=== PATIENT | male | born 1990 | race Native Hawaiian/Other Pacific Islander ===

== ENCOUNTER 2016-06-08 16:09 | Inpatient (IN) | payer BC ==
[~2016-06-08] VITALS: Ht 170.2 cm; Wt 75.3 kg
[2016-06-08 17:35] LABS: PLATELET COUNT 251 K/uL (142-355)
[2016-06-08 17:45] LABS: SODIUM 137 mmol/L (136-145)
[2016-06-08 21:59] VITALS: BP 131/80; TEMP 98.1; Ht 170.2 cm; Wt 75.3 kg
[2016-06-09] VITALS: BP 110/46; TEMP 98.2
[2016-06-09 04:00] VITALS: BP 120/56; TEMP 98.3
[2016-06-09 08:00] VITALS: BP 108/61; TEMP 98.6
[2016-06-09 08:50] LABS: PLATELET COUNT 234 K/uL (142-355)
[2016-06-09 09:43] LABS: POTASSIUM 3.5 mmol/L (3.6-5.2); SODIUM 140 mmol/L (136-145)
[2016-06-09 12:00] VITALS: BP 129/73; TEMP 98
[2016-06-09 16:00] VITALS: BP 125/63; TEMP 98.1
[2016-06-09 20:03] VITALS: BP 130/75; TEMP 98.3
[2016-06-10] VITALS: BP 117/57; TEMP 98
[2016-06-10 04:00] VITALS: BP 117/75; TEMP 98.1
[2016-06-10 06:37] LABS: PLATELET COUNT 196 K/uL (142-355)
[2016-06-10 06:54] LABS: POTASSIUM 3.2 mmol/L (3.6-5.2); SODIUM 138 mmol/L (136-145)
[2016-06-10 08:00] VITALS: BP 115/46; TEMP 98
[2016-06-10 12:00] VITALS: BP 131/61; TEMP 97.8
[2016-06-10 16:00] VITALS: BP 109/75; TEMP 98.1
[2016-06-10 20:00] VITALS: BP 121/69; TEMP 98.8
[2016-06-11] VITALS: BP 109/66; TEMP 98.4
[2016-06-11 04:00] VITALS: BP 149/79; TEMP 98.2
[2016-06-11 08:00] VITALS: BP 136/90; TEMP 98
[2016-06-11 12:00] VITALS: BP 117/65; BP 124/88; TEMP 98.3
[2016-06-11 16:00] VITALS: BP 114/73; TEMP 98.2
== END 2016-06-11 16:45 | disposition home or self-care (01) | DRG 381 ==
LOC: MED/SURG 16:09
PROVIDERS: ADMIT Family Medicine
PROC: 0DB68ZX Excision of Stomach, Via Natural or Artificial Opening Endoscopic, Diagnostic (ICD-10-PCS; principal; 2016-06-11)
DX: K22.10 Ulcer of esophagus without bleeding (principal); M62.82 Rhabdomyolysis; A04.8 Other specified bacterial intestinal infections; K29.80 Duodenitis without bleeding; K29.60 Other gastritis without bleeding; R13.12 Dysphagia, oropharyngeal phase; R11.2 Nausea with vomiting, unspecified; A08.8 Other specified intestinal infections; E86.0 Dehydration; J02.0 Streptococcal pharyngitis
CPT/HCPCS: 36415; 80053; 81000; 82550; 82553; 83735; 85027; 86318; 96360; 96361; J0696; J1642; J2001; J2060; J2405; J2704; J2780; J3490